=== PATIENT | male | born 2005 | race Caucasian/White ===

== ENCOUNTER 2024-07-19 10:09 | Day surgery (SDC) | payer MEDICAID, SELFPAY ==
[2024-07-19 10:36] VITALS: BP 140/95; PULSE 95; RESP 16; TEMP 36.9; O2SAT 100; BMI 29.9
--- NOTE | 2024-07-19 10:39 | PCM.HP.BLA ---
History and Physical Date of Admission: 07/19/24 Intake Vital Signs 06/20/2413:45 Height 5 ft 8 in Weight: 199 lb 4 oz BMI 30.2 BP 143/86 H Blood Pressure Location Rt brachial Position Sitting Respiration 18 Pulse 68 Pulse Source Monitor Temp 97.5 F L Temp Source Temporal Pulse Oximetry (%) 99 Oxygen Delivery Method room air Intake Visit Reasons: LUMP LEFT SHOULDER Chief Complaint: Lump Right Shoulder Is patient in pain?: No Allergies No Known Allergies Allergy (Unverified 06/20/24 13:46) Medications ?Medication ?Instructions ?Recorded ?Confirmed ?Type NK 06/20/24 06/20/24 History Have you fallen in the past year?: No PFSH Social History (Updated 06/20/24 @ 13:45 by Lory Martin LPN) Smoking Status: Never smoker alcohol intake: never substance use type: does not use HPI HPI HPI: Patient is a 19-year-old male here with a mass on his right shoulder. Patient notes that this has been there for a year. It is ulcerated and it does bleed. Patient does not note any pain. ROS General General: No weight change, appetite, fatigue, colon cancer, breast cancer or weakness HEENT HEENT: No difficulty swallowing, eye injury, eye surgery, swollen glands or hoarseness Endo Endocrine: No thyroid disease, diabetes mellitus, thyroid cancer, Hair loss, heat intolerance or cold intolerance Skin Skin: Yes changing moles; No rash Musc Musculoskeletal: No back problems, arthritis, rheumatoid arthritis, gout or joint pain Cardio Cardiovascular: No murmur, pacemaker, heart disease, atrial fibrillation, high blood pressure, heart attack, heart stent, palpitations, shortness of breat with exertion or chest pain Psych Psychiatric: Yes depression and anxiety; No hearing voices Resp Respiratory: No shortness of breath, No sleep apnea, No cough, No COPD, No asthma, No emphysema and No wheezing Gastro Gastrointestinal: No abdominal pain, No nausea or vomiting, No diarrhea, No constipation, No blood in stool, No acid reflux, No hemorrhoids, No ulcers, No gallbladder problem and No black,tarry stools Errol Hematologic: No blood thinners, No blood disorders, No bleeding, No anemia and No blood clots Neuro Neurologic: No numbness, No tingling and No weakness Exam Const General: cooperative Orientation: alert and oriented x3 HENMT Head: normal to inspection Neck Neck: normal visual inspection and full ROM Chest Chest palpation & inspection: normal inspection of the chest Other: Patient has a skin lesion on the right posterior shoulder the mass is soft and pedunculated with ulceration and bleeding Resp Effort & Inspection: normal respiratory effort Auscultation: clear to auscultation bilaterally Cardio Rate: regular rate Rhythm: regular rhythm GI Inspection: non-distended Palpation: soft and nontender Skin General: no rashes or lesions noted Neuro General: patient alert and patient oriented x3 Extrem General: full ROM Psych Appearance: grossly normal Mental Status: mental status grossly normal Assessment and Plan Assessment and Plan (1) Mass of skin of shoulder: Status: Acute Qualifiers: Laterality: right Qualified Code(s): R22.31 - Localized swelling, mass and lump, right upper limb Plan: The patient has a skin lesion over the posterior right shoulder. The mass is very large measuring approximately 3 cm. It is pedunculated with a wide base. I discussed removing it in the operating room so that flaps could be created and margins could be resected with cautery. Patient understands the risks of bleeding and infection and need for further surgery. Ramses Nguyễn MD Pager: [facility] [address] [place] [address], [address] [place] [address] Office: I have examined the patient and the H&P has been reviewed. There are no clinical changes since date of exam.
[2024-07-19] MEDS: Lactated Ringers 1,000 ML 15 ML IV (10:46)
--- NOTE | 2024-07-19 11:02 | PRE.ANES_ITS ---
ASA Classification* ASA Classification ASA Classification: 1 Assessment & Plan Anesthesia* Anesthesia Assessment Anesthesia Assessment: Discussed sedation and/or anesthesia options, risks, benefits, and alternatives with patient/parents/legal guardian/POA. Questions invited. The patient/parents/legal guardian/POA seems to understand and agrees to proceed with anesthesia plan. Reviewed the physical assessment, medical history, allergy history and patient home medications list prior to surgery/procedure/anesthetic and documented any changes. Performed airway and anesthesia risk assessments. Anesthesia Type Anesthesia Type: MAC History Source History Obtained from:: Patient and Chart Anesthesia Focused Assessment* Temperature: 98.5 F Pulse Rate: 95 Blood Pressure: 140/95 Respiratory Rate: 16 Pulse Ox: 100 Oxygen Delivery Method: Room Air Airway Assessment Mouth opens: >3 cm Mallampati Score: III Teeth Condition: Chipped/Broken (Chipped incisor #25) Neck Range of motion (ROM): Full ROM Focused Labs Anesthesia Preop lab: CBC CHEMISTRY COAG Pre-Assessment Diagnosis/Proposed Procedure Planned Operative Procedure(s): RIGHT SHOULDER EXCISION MASS Anesthesia History Anesthesia History - cloud solutions architect: Anesthesia History - cloud solutions architect Hx Hospitalization No 07/19/24 10:36 Any Problems With Anesthesia No 07/19/24 10:36 Cholinesterase deficiency No 07/19/24 10:36 You/Your Family Experience No 07/19/24 10:36 fever (hyperthermia) with Relationship Recent Exposure to Contagious No 07/19/24 10:36 Disease Does patient have nerve No 07/19/24 10:36 stimulator Patient instructed to have device shut off --Does patient have Pacemaker No 07/19/24 10:36 or ICD? When Was Last Pacemaker Check QUESTION #4 FULL TEXT: You/Your Family Experience fever (hyperthermia) with Anesthesia Last Oral Intake Last Oral intake: Last Oral Intake NPO since 00:00 07/19/24 10:36 Meds taken in AM with sips of water? Meds patient instructed to take am of surgery PONV PONV - cloud solutions architect: PONV - cloud solutions architect Female No 07/19/24 10:36 HX of Motion Sickness No 07/19/24 10:36 HX of N/V After Surgery No 07/19/24 10:36 Non-Smoker Yes 07/19/24 10:36 Duration of Surgery greater No 07/19/24 10:36 than 60 minutes Number of Risk Factors 1 07/19/24 10:36 PONV Score Low Risk 07/19/24 10:36 Height & Weight Height & Weight: Anesthesia: Height & Weight Height 5 ft 8 in 07/19/24 10:36 Weight: 89.358 kg 07/19/24 10:36 Body Mass Index (BMI) 29.9 07/19/24 10:36 Respiratory Assessment Respiratory Assessment - cloud solutions architect: Respiratory Tract Infection Hx - cloud solutions architect Hx Respiratory Tract Infection No 07/19/24 10:36 STOP Sleep Apnea STOP Sleep Apnea - cloud solutions architect: STOP Sleep Apnea - cloud solutions architect Hx Hypertension No 07/19/24 10:36 Hx Sleep Apnea No 07/19/24 10:36 CPAP BIPAP Do you snore loudly (louder No 07/19/24 10:36 than talking or can be heard Do you often feel tired/ No 07/19/24 10:36 fatigued/ sleepy during daytime? Has anyone observed you stop No 07/19/24 10:36 breathing during sleep? STOP Results Negative 07/19/24 10:36 QUESTION #5 FULL TEXT : Do you snore loudly (louder than talking or can be heard through closed doors)? Tobacco Use History Tobacco Use History - cloud solutions architect: Tobacco Use History - cloud solutions architect Tobacco Use Smoking Status Never smoker 07/19/24 10:36 Hx Tobacco Use No 07/19/24 10:36 Years Smoking Packs Smoked per Day Smoking Cessation Date was within the last 15 years Hx Smoking Cessation Date Hx Smoking Cessation Counseling Hematologic Medial History Hematologic Hx - cloud solutions architect: Hematologic Medical Hx - adventure therapist Hx of Blood Transfusion No 07/19/24 10:36 Hx of Transfusion in last 3 No 07/19/24 10:36 Months Date of Last Transfusion (if within last 3 months) Ever experience any problems No 07/19/24 10:36 with transfusion(s)? Specify any problems Hx of Preganancy in last 3 N/A 07/19/24 10:36 Months Nurse Filling Out Transfusion JUNE 07/19/24 10:36 & Questions: Date: 07/19/24 07/19/24 10:36 Time: 10:41 07/19/24 10:36 Patient unable to answer at this time (ie. confused, unrespo /Reproduction History /Reproductive History - cloud solutions architect: /Reproductive Hx- cloud solutions architect Hx Now No 07/19/24 10:36 Gestational Age (in weeks): EDC: Hx Hx Para Hx Section SAB Active Medications Active Medications: Current Medications Generic Name Dose Route Start Last Admin Trade Name Freq PRN Reason Stop Dose Admin Lactated Ringer's 1,000 mls @ 15 mls/hr 07/19/24 10:30 07/19/24 10:46 IV 15 mls/hr .Q48H YADI Administration PFSH Home Medications ?Medication ?Instructions ?Recorded ?Last Taken ?Type NK 06/20/24 Unknown History Allergy/AdvReac Type Severity Reaction Status Date / Time No Known Allergies Allergy Verified 07/19/24 10:35 Surgical History History of tonsillectomy and adenoidectomy Social History Smoking Status: Never smoker alcohol intake: never substance use type: does not use Review of Systems (Anesthesia) ROS Narrative System reviewed and no additional complaints, except as documented.
[2024-07-19 11:06] VITALS: BP 140/95; PULSE 95; RESP 16; TEMP 36.9; O2SAT 100
[2024-07-19] MEDS: Cefazolin 2 GM in 0.9% Normal Saline (100mL Bag) 100 ML IV (11:09)
[2024-07-19] MEDS: Lidocaine 1% /Epi 1:100 (20ml) 20 ML Vial (11:20)
--- NOTE | 2024-07-19 11:34 | PCM.POST.ANE ---
Anesthesia: Postop Eval I Current Vital Signs Temperature: 98.3 F Pulse Rate: 92 Blood Pressure: 123/59 Respiratory Rate: 20 Pulse Ox: 98 Oxygen Delivery Method: Room Air Assessment Airway patent: Yes Spontaneous unlabored respirations: Yes Mental status: Awake and Calm nausea: No Vomiting: No Anesthesia Complication: No Fluid Hydration Crystalloid volume administer (ml): 200 Total IV fluid infused: 200 Progress Note Anesthesia document: Postop Eval 1 completed: Yes
[2024-07-19 11:35] VITALS: BP 123/59; BP 140/95; PULSE 89; PULSE 92; RESP 16; RESP 20; TEMP 36.8; O2SAT 97; O2SAT 98
--- NOTE | 2024-07-19 11:36 | PCM.OPRPT ---
Report of Operation Date of Procedure: 07/19/24 Pre-Operative Diagnosis: Right posterior shoulder skin mass Post-Operative Diagnosis: Same Surgery/Procedure Performed:: Excision of skin mass of right shoulder, 2 cm Type of Anesthesia: Local MAC Specimen's removed: Right shoulder mass Estimated Blood Loss (mL): 10 Description of Procedure: Patient was brought back to the operating room and a bandage was taken off of the patient's shoulder mass. It was actively bleeding. It was prepped with Betadine. Next the area was injected with local anesthetic. Around the base of the mass an elliptical incision was made. It was excised sharply. Next the subcutaneous tissue was irrigated and hemostasis was obtained using lecture cautery. Next flaps were raised superiorly and inferiorly. The incision was then closed with interrupted 2-0 nylon sutures. Dressing was applied. Admit VTE Documentation VTE Mechan Device Prophylaxis: SCD's
--- NOTE | 2024-07-19 11:38 | DCINST_ITS ---
Discharge Instructions Diet Discharge Diet: No restrictions Activity Discharge Activity: No Restrictions and May Shower (Tomorrow. Remove bandage and shower and place new bandage over) Lifting Restrictions: light activity for 1 week Additional Activity Instructions:: Alternate ibuprofen and Tylenol for pain control, oxycodone for breakthrough pain. Dressing / Incision Call your doctor if your incision/area has: Continuous Slow Oozing, Sudden Increased Bleeding, Increased Pain/ Swelling, Increased Redness, Foul Smelling Discharge and Swelling at the incision site Call your doctor if you observe: Fever of 101 or Higher Remove Dressing in: 1 day Cleanse incision/area with: Soap & Water Follow Up Care Please Follow Up With: Ramses Nguyễn MD When: Please call to schedule 10 day follow up appointment. [phone] Test Results: Test results from this visit will be discussed in further detail at your follow- up appointment, if applicable. Discharge Plan Admission Attending Provider: Ramses Nguyễn Primary Care Provider: MATHEW FIELDS Instructions Print Language: Bulgarian Discharge Orders/Prescriptions Prescriptions: New oxycodone 5 mg tablet 5 - 10 mg PO Q6H PRN (Reason: pain) 5 Days Qty: 7 0RF Referrals / Follow Up: MATHEW FIELDS [Other] Disposition Disposition (needs filled in before D/C Order can be placed): Home, Self Care
[2024-07-19 11:40] VITALS: BP 105/66; BP 140/95; PULSE 83; RESP 16; O2SAT 95
[2024-07-19 11:45] VITALS: BP 127/76; BP 140/95; PULSE 81; RESP 16; TEMP 36.7; O2SAT 97
--- NOTE | 2024-07-19 12:00 | MASS_PTH ---
PATIENT: ROLA SEN LOC: [facility] [place] U#:[id number] AGE/SX: 19/M ROOM: RE07/19/[address]: Dr. Ramses Nguyễn MD : 2005 BED: DIS: 07/19/2024 SPEC #: [id number] RECD: 07/19/24 14:05 STATUS: OLIVIA DARLIN #: [id number] JENNIFER: 07/19/24 12:[address]: Rasmes Nguyễn DEPT: SURGICAL PATHOLOGY RECD BY: Rylee Bianchi Tissues: Shoulder, NOS Procedures: Surgery Specimen Level IV HEADER OPERATION: Excision of right shoulder mass PRE-OP DIAGNOSIS: Mass of skin of right shoulder TISSUE SUBMITTED: Right shoulder mass MICROSCOPIC DIAGNOSIS Mass of right shoulder, excision: Capillary hemangioma with focal superficial ulceration and associated acute inflammation. AM 07/21/2024 COMMENT Case has been reviewed in consultation with Dr. Engel who concurs with the above diagnosis. IDC:SJ MICROSCOPIC DESCRIPTION Slides are reviewed. GROSS DESCRIPTION Received in fixative is one container labeled with the patient's name and designated Right shoulder mass. The specimen consists of a polypoid piece of pink congested tissue measuring 4.0 x 2.5 x 2.0cm. Sections reveal congested and hemorrhagic cut surfaces. The specimen is inked, serially sectioned and entire specimen is submitted in seven cassettes. 07/20/2024 TC:1 CPT:08508
[2024-07-19 12:01] VITALS: BP 140/95
--- NOTE | 2024-07-19 16:30 | POSTOPAN2_ITS ---
Anesthesia Postop Eval I Sum Postop Eval Completion status Anesthesia document: Postop Eval 1 completed: Yes Anesthesia Postop Eval I Summary Anesthesia Postop Eval I Summary: Anesthesia Postop Eval I: Assessment Summary Airway patent Yes 07/19/24 11:35 DRY KILN LOADER.[email or web address] Spontaneous unlabored Yes 07/19/24 11:35 DRY KILN LOADER.SHEFALI respirations Mental status Awake,Calm 07/19/24 11:35 DRY KILN LOADER.[email or web address] nausea No 07/19/24 11:35 DRY KILN LOADER.[email or web address] Vomiting No 07/19/24 11:35 DRY KILN LOADER.MINDIOBWendy Anesthesia Postop Eval I: Fluid Summary Crystalloid volume administer 200 07/19/24 11:35 DRY KILN LOADER.SKOBY (ml) Colloids volume administered ( ml) Blood Product volume administered (ml) Total IV fluid infused 200 07/19/24 11:35 DRY KILN LOADER.SHEFALI Anesthesia Postop Eval I: Summary Notes Anesthesia Complication No 07/19/24 11:35 DRY KILN LOADER.SHEFALI Anesthesia Complication Comment: Post-operative progress note Anesthesia: Postop Eval II Evaluation Mental status: Awake and Calm Pain Level: 1 nausea: No Vomiting: No Complications Anesthesia Complication: No
--- NOTE | 2024-07-19 16:30 | PCM.POSTANE2 ---
Anesthesia Postop Eval I Sum Postop Eval Completion status Anesthesia document: Postop Eval 1 completed: Yes Anesthesia Postop Eval I Summary Anesthesia Postop Eval I Summary: Anesthesia Postop Eval I: Assessment Summary Airway patent Yes 07/19/24 11:35 PAN RECLAIM [email or web address].[email or web address] Spontaneous unlabored Yes 07/19/24 11:35 PAN RECLAIM PROCESSOR.[email or web address] respirations Mental status Awake,Calm 07/19/24 11:35 PAN RECLAIM PROCESSOR.[email or web address] nausea No 07/19/24 11:35 PAN RECLAIM PROCESSOR.[email or web address] Vomiting No 07/19/24 11:35 PAN RECLAIM PROCESSOR.[email or web address] Anesthesia Postop Eval I: Fluid Summary Crystalloid volume administer 200 07/19/24 11:35 PAN RECLAIM PROCESSOR.[email or web address] (ml) Colloids volume administered ( ml) Blood Product volume administered (ml) Total IV fluid infused 200 07/19/24 11:35 PAN RECLAIM PROCESSOR.SHEFALI Anesthesia Postop Eval I: Summary Notes Anesthesia Complication No 07/19/24 11:35 PAN RECLAIM PROCESSOR.SHEFALI Anesthesia Complication Comment: Post-operative progress note Anesthesia: Postop Eval II Evaluation Mental status: Awake and Calm Pain Level: 1 nausea: No Vomiting: No Complications Anesthesia Complication: No
== END 2024-07-19 12:17 | disposition home or self-care (01) ==
LOC: SDC 10:19 → AC 10:21
PROVIDERS: Referring Provider Surgery; Visit Provider Surgery
PROC: (CPT 23075; principal; 2024-07-19 11:45)
DX: D18.01 Hemangioma of skin and subcutaneous tissue (principal)
CPT/HCPCS: 23075; 88305; J7120; J2405